=== PATIENT | male | born 1965 | race Caucasian/White ===

== ENCOUNTER 2016-09-24 18:09 | Emergency (ER) | payer BC ==
[2016-09-24 18:33] VITALS: TEMP 97.8; BMI 36.5
--- NOTE | 2016-09-24 18:58 | EDPRACDOC ---
- General Information Chief Complaint: Male Urogenital Problems Stated Complaint: PAIN IN GROIN FOR 3 WEEKS Time Seen by Provider: 09/24/16 18:20 Information Source: Patient Mode Of Arrival: Car Home Medications: Home Medications Diazepam [Valium] 5 mg PO BID PRN #20 tablet 09/24/16 Ketorolac Tromethamine [Toradol] 10 mg PO Q6H PRN #20 tab 09/24/16 Allergies/Adverse Reactions: Allergies Allergy/AdvReac Type Severity Reaction Status Date / Time No Known Allergies Allergy Verified 12/27/15 17:16 - History of Present Illness Onset: 10 days HPI: PT PRESENTS WITH SCROTAL PAIN THAT HE STATES HE HAS HAD FOR THE PAST 3 WEEKS OR SO. PT STATES HE WAS SEEN BY HIS PCP AND TOLD THAT HE STRAINED HIMSELF BUT THAT THE PAIN CONTINUES. PT DENIES AND REDNESS OR EDEMA TO THE TESTICLES. 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 DENIES DYSURIA OR PENILE DISCHARGE Symptom Onset: Reports: Gradual Urinary Pain Location: Reports: None Urinary Output: Normal Penile Discharge: Reports: Normal Pain Severity: Moderate Pain Quality: Reports: Sharp, Stabbing Pain Improves with: Reports: Nothing Relevent History of: Reports: None Associated Signs & Symptoms: Reports: None ED Past Medical History - History Reviewed Yes Nurses notes reviewed and agree except as marked - Patient Medical History Cardiac History: Reports: Hypertension GI/ History: Reports: Kidney Stones, Gastroesophageal Reflux Psychological History: Reports: Anxiety. Denies: Depression Surgical History: Reports: Other (LUMBAR BACK SURGERY) - Social Medical History Smoking Status: Never smoker EDM Review of Systems - Review of Systems ROS Negative Except as Marked: Yes All systems reviewed and were negative except as marked - Physical Exam Constitutional: Alert Oriented to: Time, Person, Place Last recorded Vital Signs: Last Vital Signs Temp 97.8 F 09/24/16 18:20 Pulse 85 09/24/16 18:20 Resp 18 09/24/16 18:20 BP 157/75 09/24/16 18:20 Pulse Ox 98 09/24/16 18:20 Oxygen Pulse Oxygen Saturation 98 O2 Device Room Air Oxygen Flow Rate Fraction of Inspired Oxygen ( FIO2) - HEENT Head: Normal ( normocephalic) Eye Exam: Normal (PERRL, EOMI, Sclera white) Oropharynx: Normal (Pharynx:Moist without exudate,Gums-no swelling) Nose: No Symptoms Reported (septum midline) Neck: Normal (FROM, trachea at midline) - Respiratory/Cardiovascular Respiratory: Normal - CTA (BBS clear to auscultation without adventitious sounds ) Cardiovascular: Normal (RRR without murmur, gallop or rub) - GI Auscultation: Normal (NABS) Palpation: Normal (Soft,No rebound or guarding, non distended) Tenderness: Non tender Lara's Sign: Negative Rectal Exam: Deferred - Male Genitalia: Bilateral: Normal Scrotum: Right: Tender Hernia: Bilateral: Normal - Musculoskeletal Back: Normal (Non-Tender) Extremities: Normal (Normal tone, Pulses 2+ No cyanosis or edema, FROM) - Integumentary Skin: Normal, Warm, Dry Lymphatics: Normal (no adenopathy) - Neurologic Memory Impaired: Normal Motor Function: Normal (Normal tone, Pulses 2+ No cyanosis or edema, FROM) Cranial Nerve: Normal (CN II-X11 intact sensation, strength 5/5) Cerebellar: Normal Mood Description: Normal Perception: Normal ED Penile Problem Exam - Genitals Penile Assessment: Normal Penile Discharge: Normal Glans: Normal Foreskin: Normal Shaft: Normal Scrotum: Right: Tender Epididymis: Right: Tender Testicle: Bilateral: Normal - Differential Diagnosis Other Decision Time to Discharge: 20:15 - Departure Disposition: Home Condition: Stable Final Diagnosis: Testicular pain, right Instructions: Testicle Pain (ED) Education/Counseling Given To: Patient Education/Counseling Given Regarding: Diagnosis, Treatment, Prognosis, Follow Up Referrals: Stephanie Richardson MD [Primary Care Provider] - One Week Kiran Dinh MD [Staff Physician] - One Week Prescriptions: Diazepam [Valium] 5 mg PO BID PRN #20 tablet PRN Reason: Muscle Spasms Ketorolac Tromethamine [Toradol] 10 mg PO Q6H PRN #20 tab PRN Reason: Pain Additional Instructions: FOLLOW UP WITH PCP NEXT WEEK. IF PAIN CONTINUES PLEASE FOLLOW UP WITH UROLOGIST.
--- NOTE | 2016-09-24 20:05 | DIRPT ---
CLINICAL DATA: 51-year-old male with pain in the right inguinal area. Bilateral testicular pressure for 1 week. EXAM: SCROTAL ULTRASOUND DOPPLER ULTRASOUND OF THE TESTICLES TECHNIQUE: Complete ultrasound examination of the testicles, epididymis, and other scrotal structures was performed. Color and spectral Doppler ultrasound were also utilized to evaluate blood flow to the testicles. COMPARISON: No priors. FINDINGS: Right testicle Measurements: 2.8 x 1.4 x 2.1 cm. No mass or microlithiasis visualized. Left testicle Measurements: 3.0 x 1.9 x 2.5 cm. No mass or microlithiasis visualized. Right epididymis: Normal in size and appearance. Left epididymis: Normal in size and appearance. Hydrocele: Small bilateral hydroceles. Varicocele: None visualized. Pulsed Doppler interrogation of both testes demonstrates normal low resistance arterial and venous waveforms bilaterally. IMPRESSION: 1. Small bilateral hydroceles. Otherwise, normal sonographic appearance of the testicles and epididymides bilaterally. Electronically Signed By: Chadwick Kwon M.D. On: 09/24/2016 20:03
[2016-09-24 21:00] VITALS: BP 143/87; PULSE 81
== END 2016-09-24 20:29 | disposition home or self-care (01) ==
LOC: ED 18:09
DX: N50.811 Right testicular pain (principal)
CPT/HCPCS: 76870; 93975; 99282